=== PATIENT | female | born 1975 | race American Indian/Alaskan Native ===

== ENCOUNTER 2018-04-27 11:37 | Emergency (ER) | payer OTHER ==
[2018-04-27 12:18] LABS: Basophils # (Auto) 0.1 K/mm3 (0.0-0.1); Basophils % (Auto) 0.7 % (0.0-1.8); Eosinophils % (Auto) 0.4 % (0.0-4.3); Hematocrit 26.2 % (30.3-42.9); Hemoglobin 7.8 gm/dl (10.1-14.3); Lymphocytes # (Auto) 1.4 K/mm3 (1.2-5.4); Lymphocytes % (Auto) 16.2 % (13.4-35.0); Mean Corpuscular HGB Conc 30 % (30-34); Monocytes # (Auto) 0.6 K/mm3 (0.0-0.8); Monocytes % (Auto) 6.8 % (0.0-7.3); Platelet Count 399 K/mm3 (140-440); Red Blood Count 4.13 M/mm3 (3.65-5.03)
[2018-04-27 12:21] LABS: Mean Corpuscular Hemoglobin 19 pg (28-32); Mean Corpuscular Volume 64 fl (79-97)
[2018-04-27 12:37] LABS: BUN/Creatinine Ratio 10; Blood Urea Nitrogen 6 mg/dL (7-17); Calcium 8.9 mg/dL (8.4-10.2); Hemolysis Index 1
--- NOTE | 2018-04-27 13:39 | Emergency Department Report ---
ED General Adult HPI - General Chief complaint: Chest Pain Stated complaint: CHEST PAIN Time Seen by Provider: 04/27/18 13:15 Source: patient Mode of arrival: Ambulatory Limitations: No Limitations - History of Present Illness Initial comments: 32-year-old female complains of right sided chest pain. The patient states that she was sitting at her computer and not under a lot of stress when she noted that she had pain under her right breast which did not radiate. She denied shortness of breath. She denied cough. She stated that she had pain like this once before and she was found to have pneumonia. At that time she was coughing and had a fever. She has no history of any cardiac issue. She has had no recent travel. She states that the pain was somewhat worse with breathing. She did not complain of sweating nausea or vomiting. She did feel that the area was somewhat tender to movement or palpation. -: Gradual, hour(s) Location: chest Radiation: non-radiation Quality: aching Consistency: intermittent Improves with: none Worsens with: none Associated Symptoms: denies other symptoms Treatments Prior to Arrival: none - Related Data Previous Rx's Medication Instructions Recorded Last Taken Type Ferrous Gluconate [Fergon 325 MG 325 mg PO TID #21 tablet 04/27/18 Unknown Rx tab] traMADol [Ultram 50 MG tab] 50 mg PO Q6HR PRN #10 tablet 04/27/18 Unknown Rx Allergies Allergy/AdvReac Type Severity Reaction Status Date / Time No Known Allergies Allergy Unverified 04/27/18 11:49 ED Review of Systems ROS: Stated complaint: CHEST PAIN Other details as noted in HPI Constitutional: denies: chills, fever Eyes: denies: eye pain, eye discharge, vision change ENT: denies: ear pain, throat pain Respiratory: denies: cough, shortness of breath, wheezing Cardiovascular: chest pain. denies: palpitations Endocrine: no symptoms reported Gastrointestinal: denies: abdominal pain, nausea, diarrhea Genitourinary: denies: urgency, dysuria, discharge Musculoskeletal: denies: back pain, joint swelling, arthralgia Skin: denies: rash, lesions Neurological: denies: headache, weakness, paresthesias Psychiatric: denies: anxiety, depression Hematological/Lymphatic: denies: easy bleeding, easy bruising ED Past Medical Hx - Past Medical History Previous Medical History?: Yes Additional medical history: exercise induced asthma - Surgical History Past Surgical History?: No - Social History Smoking Status: Never Smoker Substance Use Type: None - Medications Home Medications: Home Medications Medication Instructions Recorded Confirmed Last Taken Type Ferrous Gluconate [Fergon 325 MG 325 mg PO TID #21 tablet 04/27/18 Unknown Rx tab] traMADol [Ultram 50 MG tab] 50 mg PO Q6HR PRN #10 tablet 04/27/18 Unknown Rx ED Physical Exam - General Limitations: No Limitations General appearance: alert, in no apparent distress - Head Head exam: Present: atraumatic, normocephalic - Eye Eye exam: Present: normal appearance, PERRL, EOMI. Absent: scleral icterus - ENT ENT exam: Present: mucous membranes moist - Neck Neck exam: Present: normal inspection. Absent: tenderness, meningismus - Respiratory Respiratory exam: Present: normal lung sounds bilaterally. Absent: respiratory distress - Cardiovascular Cardiovascular Exam: Present: regular rate, normal rhythm. Absent: systolic murmur, diastolic murmur, rubs, gallop - GI/Abdominal GI/Abdominal exam: Present: soft, normal bowel sounds. Absent: distended, tenderness, guarding, rebound, rigid - Extremities Exam Extremities exam: Present: normal inspection - Back Exam Back exam: Present: normal inspection - Neurological Exam Neurological exam: Present: alert, oriented X3, CN II-XII intact. Absent: motor sensory deficit - Psychiatric Psychiatric exam: Present: normal affect, normal mood - Skin Skin exam: Present: warm, dry, intact, normal color. Absent: rash ED Course Vital Signs 04/27/18 11:49 Temperature 98.6 F Pulse Rate 77 Respiratory 18 Rate Blood Pressure 124/72 O2 Sat by Pulse 100 Oximetry - Reevaluation(s) Reevaluation #1: Resting comfortably. Patient denies DUB. Denies signs of GI bleeding. States never been told she was anemic before. Her MCV and MCH are quite low so this is definitely a chronic and likely iron deficiency anemia. She has been informed that further workup is necessary. She states that she has a primary care physician. I have given her a copy of her lab tests. She is appropriate for iron replacement therapy and outpatient follow-up and further workup. Patient discharged in stable condition. 04/27/18 15:13 ED Medical Decision Making - Lab Data Result diagrams: 04/27/18 11:59 04/27/18 11:59 Laboratory Results - last 24 hr 04/27/18 04/27/18 04/27/18 11:59 11:59 11:59 WBC 8.5 RBC 4.13 Hgb 7.8 L Hct 26.2 L MCV 64 L MCH 19 L MCHC 30 RDW 22.0 H Plt Count 399 Lymph % (Auto) 16.2 [place] % (Auto) 6.8 Eos % (Auto) 0.4 Baso % (Auto) 0.7 Lymph # 1.4 [place] # 0.6 Eos # 0.0 Baso # 0.1 Seg Neutrophils % 75.9 H Seg Neutrophils # 6.5 Sodium 139 Potassium 3.9 Chloride 102.8 Carbon Dioxide 24 Anion Gap 16 BUN 6 L Creatinine 0.6 L Estimated GFR > 60 BUN/Creatinine Ratio 10 Glucose 86 Calcium 8.9 Troponin T < 0.010 HCG, Qual Negative Laboratory Results - last 24 hr 04/27/18 04/27/18 04/27/18 11:59 11:59 11:59 WBC 8.5 RBC 4.13 Hgb 7.8 L Hct 26.2 L MCV 64 L MCH 19 L MCHC 30 RDW 22.0 H Plt Count 399 Lymph % (Auto) 16.2 [place] % (Auto) 6.8 Eos % (Auto) 0.4 Baso % (Auto) 0.7 Lymph # 1.4 [place] # 0.6 Eos # 0.0 Baso # 0.1 Seg Neutrophils % 75.9 H Seg Neutrophils # 6.5 PT INR APTT D-Dimer Sodium 139 Potassium 3.9 Chloride 102.8 Carbon Dioxide 24 Anion Gap 16 BUN 6 L Creatinine 0.6 L Estimated GFR > 60 BUN/Creatinine Ratio 10 Glucose 86 Calcium 8.9 Troponin T < 0.010 HCG, Qual Negative 04/27/18 13:27 WBC RBC Hgb Hct MCV MCH MCHC RDW Plt Count Lymph % (Auto) [place] % (Auto) Eos % (Auto) Baso % (Auto) Lymph # [place] # Eos # Baso # Seg Neutrophils % Seg Neutrophils # PT 13.5 INR 0.98 APTT 27.5 D-Dimer < 135.00 Sodium Potassium Chloride Carbon Dioxide Anion Gap BUN Creatinine Estimated GFR BUN/Creatinine Ratio Glucose Calcium Troponin T HCG, Qual - EKG Data -: EKG Interpreted by In EKG shows normal: sinus rhythm, axis, intervals, QRS complexes, ST-T waves Rate: normal - EKG Data Interpretation: normal EKG Critical care attestation.: If time is entered above; I have spent that time in minutes in the direct care of this critically ill patient, excluding procedure time. ED Disposition Clinical Impression: Chest wall pain Iron deficiency anemia Qualifiers: Iron deficiency anemia type: unspecified iron deficiency Qualified Code(s): D50.9 - Iron deficiency anemia, unspecified Disposition: TO HOME OR SELFCARE Is pt being admited?: No Does the pt Need Aspirin: No Condition: Stable Instructions: Chest Pain (ED), Anemia (ED) Additional Instructions: Follow-up with your primary care provider. You are significantly anemic. Further workup is necessary. Rx for tramadol as needed for pain and iron replacement. Return any acute change or worsening symptoms. Prescriptions: Ferrous Gluconate [Fergon 325 MG tab] 325 mg PO TID #21 tablet traMADol [Ultram 50 MG tab] 50 mg PO Q6HR PRN #10 tablet PRN Reason: Pain Referrals: usual, primary care provider [Other] - 3-5 Days Time of Disposition: 15:14
[2018-04-27 14:25] LABS: INR 0.98 (0.87-1.13)
[2018-04-27 14:26] LABS: Partial Thromboplastin Time 27.5 Sec. (24.2-36.6)
[2018-04-27 15:20] VITALS: BP 126/70
--- NOTE | 2018-04-27 16:18 | XRay Report ---
FINAL REPORT EXAM: XR CHEST ROUTINE 2V HISTORY: CP right TECHNIQUE: Frontal and lateral views of the chest. PRIORS: None currently available. FINDINGS: Cardiac silhouette is within normal limits. There is no effusion. There is no pneumothorax. There is no consolidation. There are no suspicious osseous lesions. IMPRESSION: No acute cardiopulmonary findings.
== END 2018-04-27 16:01 | disposition home or self-care (01) ==
LOC: ED 11:37
DX: R07.89 Other chest pain (principal); D50.9 Iron deficiency anemia, unspecified
CPT/HCPCS: 36415; 71046; 80048; 84484; 84703; 85025; 85379; 85610; 85730; 93005; 93010